=== PATIENT | female | born 1990 | race Asian ===

== ENCOUNTER 2024-12-07 18:43 | Emergency (ER) | payer OTHER, SELFPAY ==
[2024-12-07 18:53] VITALS: BP 112/86
[2024-12-07 19:22] LABS: % Basophils 0.8 % (0-2); % Eosinophils 0.8 % (0-6); % Immature Granulocytes 0.2 % (0-0.5); % Lymphocytes 34.6 % (20.5-51.1); % Monocytes 4.3 % (1.7-9.3); % Neutrophils 59.3 % (42.2-75.2); Absolute Basophils 0.1 10^3/uL (0-0.2); Absolute Eosinophils 0.1 10^3/uL (0-0.7); Absolute Lymphocytes 3.4 10^3/uL (1.2-3.4); Absolute Monocytes 0.4 10^3/uL (0.1-0.6); Absolute Neutrophils 5.8 10^3/uL (1.4-6.5); Hematocrit 35.7 % (37.0-47.0); Hemoglobin 11.7 g/dL (12.0-16.0); Mean Corp Hgb Conc. 32.8 g/dL (33.0-37.0); Mean Corpuscular Hgb 25.2 pg (27.0-31.0); Mean Corpuscular Volume 76.9 fL (81.0-99.0); Mean Platelet Volume 10.4 fL (7.4-10.4); Nucleated Red Blood Cells % 0 %; Platelet Count 307 10^3/uL (130-400); Red Blood Cell Count 4.64 10^6/uL (4.20-5.40); Red Cell Dist. Width 13.4 % (11.5-14.5); White Blood Cell Count 9.8 10^3/uL (4.8-10.8)
[2024-12-07 19:35] LABS: HCG, Serum Qualitative Screen Negative; INR 0.87; PT 12.1 Sec (11.4-14.6)
[2024-12-07 19:39] LABS: ALT (SGPT) 18 U/L (0-35); AST (SGOT) 20 U/L (14-36); Albumin 4.6 g/dl (3.5-5.0); Alkaline Phosphatase 76 U/L (38-126); Blood Urea Nitrogen 8 mg/dl (7-17); Calcium 9.5 mg/dl (8.4-10.2); Carbon Dioxide 25 mmol/L (22-30); Chloride 99 mmol/L (98-107); Glucose 150 mg/dl (70-99); Potassium 4.2 mmol/L (3.5-5.1); Sodium 135 mmol/L (135-145); Total Bilirubin 0.5 mg/dl (0.2-1.3); Total Protein 7.6 g/dl (6.3-8.2); eGFR > 60.00
[2024-12-07 19:47] LABS: Troponin I < 0.012 ng/ml
--- NOTE | 2024-12-07 23:29 | ED.GENMED ---
History of Present Illness
General
Chief Complaint: Chest Pain
Time Seen by Provider: 12/07/24 23:13
History of Present Illness
History of Present Illness:
34-year-old female presenting to the emergency department with left-sided chest pain since yesterday. Patient reports that she woke up with the pain. Pain radiates to her left upper extremity. Denies any difficulty breathing. Does note mild
cough. Denies abdominal pain or GI symptoms. Reports family history of cardiac issues. Denies any personal history of cardiac problems. Denies any history of blood clot, recent surgery, recent travel, exogenous estrogen. Denies fever. Denies
additional acute medical complaint
Phy Exam
Physical Exam
Physical Exam:
General: Well-appearing, no clinical signs of dehydration, nontoxic and in no acute distress
HEENT: protecting airway
Neck: appears supple
CV: Normal heart rate, regular rhythm, no evidence of cyanosis
Resp: No accessory muscle use, no increased work of breathing, lungs clear to auscultation bilaterally
Abd: Soft and non-distended, no tenderness to palpation
Extremities: No deformities, no swelling, no erythema
Neuro: alert, no focal neurologic deficit
: deferred
Rectal: deferred
Psych: Normal affect
Skin: Intact
Scores
Heart Score for Chest Pain Patients
STEMI patient?: No
History: Slightly or Non-Suspicious
ECG: Normal
Age: </= 45 years
Risk Factors: No Risk Factors
Troponin: </= Normal Limit
Heart Score for Chest Pain Patients: 0
Heart Score Risk: 2.5% MACE over next 6 weeks
Course
Orders/Labs/Results
Orders:
Orders
12/07/24 18:44
EKG [Electrocardiogram (*1)] Urgent
Reason for Study: Chest Pain
EKG- Treatment ONCE
12/07/24 18:58
Test Result ONCE
12/07/24 19:07
Complete Blood Count/With Diff Urgent
Comprehensive Metabolic Panel Urgent
HCG, Serum Qualitative Screen Urgent
Prothrombin Time Urgent
Troponin I Urgent
Abnormal Lab Results
12/07/24
19:07
Hgb 11.7 L g/dL
(12.0-16.0)
Hct 35.7 L %
(37.0-47.0)
MCV 76.9 L fL
(81.0-99.0)
MCH 25.2 L pg
(27.0-31.0)
MCHC 32.8 L g/dL
(33.0-37.0)
Glucose 150 H mg/dl
(70-99)
12/07/24 19:07
12/07/24 19:07
Vital Signs
Initial and Last Documented VS:
Initial Vital Signs
Temp Pulse Resp BP Pulse Ox
98.1 F 98 18 112/86 100
12/07/24 18:53 12/07/24 18:53 12/07/24 18:53 12/07/24 18:53 12/07/24 18:53
Last Documented Vital Signs
Temp Pulse Resp BP Pulse Ox
98.1 F 98 18 112/86 100
12/07/24 18:53 12/07/24 18:53 12/07/24 18:53 12/07/24 18:53 12/07/24 18:53
MDM/Problems Addressed
MDM/Problems Addressed:
34-year-old female presenting chest pain. Vital signs on arrival are normal.
On exam patient is very well-appearing. Overall benign cardiac and pulmonary exam. EKG obtained on patient's arrival, nonischemic. Patient low risk from a cardiac perspective with overall low suspicion for ACS. Screening laboratory analysis sent
prior to my assessment, undetectable troponin. Patient low risk by heart score. Again without present concern for ACS. She is PERC negative without concern for PE. Mild tenderness to palpation of left chest wall, suspect possible musculoskeletal
component. Feel stable for discharge with outpatient follow-up. Return precautions discussed and patient verbalized understanding.
*EKG
Interpreted by ED Provider?: Yes
EKG Intrepretation Date: 12/07/24
EKG Intrepretation Time: 23:35
Interpretation: normal
Heart Rate: 92
Rate: normal
Rhythm: sinus
[place]: normal axis
Interval: normal interval
QRS Pattern: normal QRS
Ischemia: no ischemia
*Critical Care Note
Total Time (30-74mins, 75-104mins- exclusive of procedures): Not Applicable
ED Attending Note
-
Portions of this chart may have been created with voice recognition software.� Occasional wrong word or��sound alike� substitutions may have occurred due to the inherent limitations of voice recognition software.
Discharge Plan
Departure
Patient Disposition: Home (Routine Discharge)
Date of Disposition: 12/07/24
Time of Disposition: 23:32
Patient with high blood pressure during this ER visit?: No
Condition: Good
Discharge Problem:
Chest pain
Instructions: Chest pain - Discharge instructions
Referrals:
Turner Carrasquillo MD [Active] -
Activity Restrictions/Additional Instructions:
You were seen in the emergency department for chest pain
You were found to have a normal EKG as well as blood work
Please follow-up closely with your primary care physician.
Return to the emergency department for any worsening of your symptoms, or any development of chest pain, difficulty breathing, abdominal pain with persistent vomiting and inability to tolerate food or liquid by mouth (concern for dehydration),
weakness, headache or confusion, fever greater than 100.4, or any additional symptoms that are concerning to you.
Thank you for choosing [facility].
Discharge Date and Time
Print Language: URDU
[2024-12-07 23:44] VITALS: BP 104/74
== END 2024-12-07 23:45 | disposition home or self-care (01) ==
LOC: EMR 18:43
PROVIDERS: Emergency Medicine; EMERGENCY PHYSICIAN Student in an Organized Health Care Education/Training Program; FAMILY PHYSICIAN Internal Medicine
DX: R07.89 Other chest pain (principal)
CPT/HCPCS: 99284; 80053; 84484; 84703; 85025; 85610; 93005